=== PATIENT | female | born 1990 | race Caucasian/White ===

== ENCOUNTER → 2017-02-15 | Outpatient (CLI) | payer BC ==
[~2017-02-15] MED LIST: CLC100 PO; FRRS300 PO; MTR600X PO; OXYC-57 PO; PRENTAB26 PO
[2017-02-15 12:38] LABS: THYROID STIMULATING HORMONE 0.532 uIu/ml (0.300-4.500)
== END | disposition home or self-care (01) ==
LOC: C.LAB1850 10:41
PROVIDERS: ATTEND Internal Medicine
DX: Z13.29 Encounter for screening for other suspected endocrine disorder (principal)